=== PATIENT | male | born 1980 | race Caucasian/White ===

== ENCOUNTER 2018-06-13 19:07 | Outpatient (REF) | payer OTHER, SELFPAY ==
[2018-06-13 19:23] LABS: Anion Gap 8.9 mmol/L (3-11); BUN 14 mg/dL (7-18); CO2 27.1 mmol/L (21.0-32.0); CREATININE 0.95 mg/dL (0.70-1.30); Calcium 9.3 mg/dL (8.5-10.1); Chloride 103 mmol/L (98-107); Cholesterol 272 mg/dL (50-200); Glucose 95 mg/dL (70-100); HDL Cholesterol 50 mg/dL (40-60); LDL CHOLESTEROL 201 mg/dL (<100); Potassium 4.4 mmol/L (3.5-5.1); Sodium 139 mmol/L (136-145); Triglyceride 130 mg/dL (30-150)
== END 2018-06-13 19:27 ==
LOC: NCHCN 19:07
PROVIDERS: PCP Specialist/Technologist Athletic Trainer; Visit Provider Specialist/Technologist Athletic Trainer
DX: Z00.00 Encounter for general adult medical examination without abnormal findings (principal); I10 Essential (primary) hypertension
CPT/HCPCS: 80048; 80061; 83721

== ENCOUNTER 2020-05-09 19:55 | Outpatient (REF) | payer OTHER, SELFPAY ==
[2020-05-11 17:58] LABS: Patient Race White; SARS-CoV-2 RNA Undetected (Undetected); SARS-CoV-2 Specimen Source Nasal
== END 2020-05-09 20:15 ==
LOC: NCHCN 19:55
PROVIDERS: PCP Nurse Practitioner Family; Visit Provider Nurse Practitioner Family
DX: R09.81 Nasal congestion (principal)
CPT/HCPCS: U0003

== ENCOUNTER 2020-06-20 08:41 | Outpatient (REF) | payer OTHER, SELFPAY ==
[2020-06-20 15:31] LABS: Anion Gap 6.8 mmol/L (3-11); BUN 14 mg/dL (7-18); CO2 27.2 mmol/L (21.0-32.0); CREATININE 1.03 mg/dL (0.70-1.30); Calculated LDL 99 mg/dL (<100); Chloride 103 mmol/L (98-107); Cholesterol 171 mg/dL (<200); Glucose 90 mg/dL (74-106); HDL Cholesterol 47 mg/dL (40-60); Potassium 4.2 mmol/L (3.5-5.1); Sodium 137 mmol/L (136-145); Triglyceride 127 mg/dL (<150)
== END 2020-06-20 09:01 ==
LOC: NCHCN 08:41
PROVIDERS: PCP Nurse Practitioner Family; Visit Provider Nurse Practitioner Family
DX: E78.5 Hyperlipidemia, unspecified (principal); I10 Essential (primary) hypertension
CPT/HCPCS: 80048; 80061

== ENCOUNTER 2020-09-23 10:33 | Outpatient (REF) | payer OTHER, SELFPAY ==
[2020-09-23 15:46] LABS: Calculated LDL 72 mg/dL (<100); Cholesterol 131 mg/dL (<200); HDL Cholesterol 46 mg/dL (40-60); Triglyceride 66 mg/dL (<150)
== END 2020-09-23 10:34 | disposition home or self-care (01) ==
LOC: NCHCN 10:33
PROVIDERS: PCP Nurse Practitioner Family; Visit Provider Nurse Practitioner Family
DX: E78.5 Hyperlipidemia, unspecified (principal)
CPT/HCPCS: 80061

== ENCOUNTER 2021-04-17 10:15 | Outpatient (REF) | payer OTHER, SELFPAY ==
[2021-04-19 08:37] LABS: COVID-19 RT-PCR UVMMC Result Presumptive Positive (Negative)
== END 2021-04-17 10:16 | disposition home or self-care (01) ==
LOC: NCHCN 10:15
PROVIDERS: PCP Nurse Practitioner Family; Visit Provider Nurse Practitioner Family
DX: Z20.822 Contact with and (suspected) exposure to COVID-19 (principal)
CPT/HCPCS: U0003

== ENCOUNTER 2021-07-14 17:25 | Outpatient (REF) | payer OTHER, SELFPAY ==
[2021-07-14 19:37] LABS: Anion Gap 7.9 mmol/L (3-11); BUN 14 mg/dL (7-18); CO2 29.1 mmol/L (21.0-32.0); Calcium 9.1 mg/dL (8.5-10.1); Calculated LDL 103 mg/dL (<100); Chloride 103 mmol/L (98-107); Cholesterol 178 mg/dL (<200); Glucose 85 mg/dL (74-106); HDL Cholesterol 56 mg/dL (40-60); Sodium 140 mmol/L (136-145); Triglyceride 98 mg/dL (<150)
== END 2021-07-14 17:26 | disposition home or self-care (01) ==
LOC: NCHCN 17:25
PROVIDERS: PCP Nurse Practitioner Family; Visit Provider Nurse Practitioner Family
DX: I10 Essential (primary) hypertension (principal); E78.5 Hyperlipidemia, unspecified
CPT/HCPCS: 80048; 80061

== ENCOUNTER 2022-11-09 18:18 | Outpatient (REF) | payer OTHER, SELFPAY ==
[2022-11-09 19:02] LABS: ALT 39 U/L (16-63); AST 27 U/L (15-37); Albumin 4.3 g/dL (3.4-5.0); Alkaline Phosphatase 54 U/L (46-116); Anion Gap 9.2 mmol/L (3-11); BUN 13 mg/dL (7-18); Bilirubin, Total 0.8 mg/dL (0.2-1.0); CO2 24.8 mmol/L (21.0-32.0); CREATININE 0.9 mg/dL (0.70-1.30); Calcium 9.2 mg/dL (8.5-10.1); Calculated LDL 110 mg/dL (<100); Chloride 103 mmol/L (98-107); Cholesterol 183 mg/dL (<200); Estimated GFR 108.01 (mL/min/1.73m2); Glucose 91 mg/dL (74-106); HDL Cholesterol 55 mg/dL (40-60); Sodium 137 mmol/L (136-145); Total Protein 7.8 g/dL (6.4-8.2); Triglyceride 91 mg/dL (<150)
== END 2022-11-09 18:19 | disposition home or self-care (01) ==
LOC: NCHCN 18:18
PROVIDERS: PCP Nurse Practitioner Family; Visit Provider Nurse Practitioner Family
DX: E78.5 Hyperlipidemia, unspecified (principal); I10 Essential (primary) hypertension; Z13.1 Encounter for screening for diabetes mellitus; Z83.3 Family history of diabetes mellitus; E55.9 Vitamin D deficiency, unspecified
CPT/HCPCS: 80053; 80061; 82306; 83036

== ENCOUNTER 2023-03-25 20:17 | Outpatient (REF) | payer OTHER, SELFPAY ==
[2023-03-25 19:31] LABS: Anion Gap 9.7 mmol/L (3-11); BUN 15 mg/dL (7-18); CO2 24.3 mmol/L (21.0-32.0); CREATININE 0.9 mg/dL (0.70-1.30); Calcium 9.7 mg/dL (8.5-10.1); Chloride 104 mmol/L (98-107); Estimated GFR 107.33 (mL/min/1.73m2); Glucose 83 mg/dL (74-106); Potassium 4.6 mmol/L (3.5-5.1); Sodium 138 mmol/L (136-145)
[2023-03-25 19:55] LABS: Vitamin D 25 Total 28.3 ng/mL (30-100)
== END 2023-03-25 20:18 | disposition home or self-care (01) ==
LOC: NCHCN 20:17
PROVIDERS: PCP Nurse Practitioner Family; Visit Provider Nurse Practitioner Family
DX: E78.5 Hyperlipidemia, unspecified (principal); I10 Essential (primary) hypertension
CPT/HCPCS: 80048; 82306

== ENCOUNTER 2023-09-09 10:30 | Day surgery (SDC) | payer OTHER, SELFPAY ==
--- NOTE | 2023-09-08 18:55 | W.PM.DSUDISC ---
Date of service: 09/09/23 Time of Service: 12:33 Discharge Plan Disposition Patient Disposition: Home Condition: Good Discharge Details Reason For Visit: screening colonoscopy Attending Provider: Christiano Downey Primary Care Provider: Eboni Langford Home Meds and New Rx's Prescriptions: Continued ibuprofen 200 mg tablet 200 mg PO Q6H PRN zinc gluconate 30 mg tablet 30 mg PO DAILY lysine 1,000 mg tablet 1,000 mg PO DAILY atorvastatin 20 mg tablet 10 mg PO DAILY lisinopril 20 mg tablet 20 mg PO DAILY cholecalciferol (vitamin D3) 25 mcg (1,000 unit) capsule 25 mcg PO DAILY sertraline 50 mg tablet 50 mg PO DAILY Patient Comments: take 1 tablet by mouth once daily Discontinued bisacodyl [Dulcolax (bisacodyl)] 5 mg tablet,delayed release (DR/EC) 5 mg PO ONCE Qty: 4 0RF Rx Instructions: Colonoscopy Bowel Prep- Per Instructions polyethylene glycol 3350 17 gram/dose powder 238 g PO ONCE Qty: 238 0RF Rx Instructions: Colonoscopy Bowel Prep- Per Instructions Discharge Instructions Instructions: Diverticulosis (GEN), Diverticulosis Diet (GEN) Additional Instructions: Jean Marie, we were able to complete your colonoscopy today without any difficulty. I did not see any signs of any tumors or polyps. You do have some diverticulosis. Diverticula are little weak spots in the muscular part of the colon wall. This causes little pouches to form. These diverticula can become infected, at which point we called him diverticulitis. That is typically experienced as a fair amount of pain that usually on the left side of the abdomen or down across the middle. Patients are typically quite ill when this happens. Hopefully, he never experienced any of the symptoms. Have attached a little bit of information here regarding broad approaches to diverticular management. Essentially, I think he should try to stay well-hydrated, avoid constipation, and increase the amount of fiber in your diet. Otherwise your colonoscopy was negative. And you will not need another one for about 10 years. 1. If tolerated, consume a soft, low fiber diet for 1-2 days. 2. Do not drive, drink alcohol, operate machinery, make critical decisions, or do activities that require coordination or balance for 24 hours. 3. Because air was put into your colon during the procedure, expelling air from your rectum (passing gas or farting) is normal. 4. You may not have a bowel movement for 1-3 days because of the colonoscopy prep. This is normal. 5. Go directly to the emergency room if you notice any of the following: Develop chills (warm to touch), or if you have a thermometer and your temperature is above 101 Difficulty breathing or difficultly swallowing Persistent vomiting Severe abdominal pain, other than gas cramps Severe chest pain Black, tarry stools Any bleeding ? exceeding one tablespoon 6. Call your physician if the site where your intravenous was started becomes red, swollen, painful, and warm to touch. 7. Your physician has reviewed your pre-procedure medications. Please continue to take those medications as previously ordered. You will be given specific information/education regarding any changes to your medications before leaving. Activity:: Activity as Tolerated Diet:: As Tolerated Discharge Orders Discharge Orders: Discharge Order (Routine); Ordered 09/08/23 Ordered By: Christiano Downey DS: Diagnosis Discharge Diagnosis (1) Encounter for screening colonoscopy: Status: Acute Asessment and Plan: Diverticulosis with otherwise negative screening colonoscopy. Follow-up in 10 years
--- NOTE | 2023-09-08 18:56 | W.COLOREPORT ---
Date of service: 09/09/23 Time of Service: 12:35 Colonoscopy Report Date of procedure: 09/09/23 Pre-op diagnosis general: screening colonoscopy Post-op diagnosis procedure note: other (Diverticulosis) Procedure: colonoscopy Surgeon: Christiano Downey Anesthesia Type: General:No Airway Estimated blood loss (mL): 0 Pathology: none sent Complications: None Disposition: same day Indications: Jean Marie is a 43 year old man who needs a screening colonoscopy Prep: Miralax/Dulcolax Procedure Start Time: 12:04 Procedure End Time: 12:25 Retraction Time: 11 Findings: Sigmoid diverticulosis Procedure Description: After the induction of monitored anesthetic care, and with the patient in left lateral decubitus position, I began by performing an external anorectal exam.? Perineum and skin were normal, as was the anal verge.? There was no evidence of external hemorrhoids.? Next, I performed a digital rectal exam.? I did appreciate any abnormal findings.? Next, I advanced a colonoscope into the rectal vault.? I performed retroflexion.? This appeared normal.? Using insufflation, I then advanced the colonoscope beyond the rectal folds and into the sigmoid colon before advancing towards the cecum.? There was sigmoid diverticulosis.? The scope was noted to be in the cecum by identification of the ileocecal valve and appendiceal orifice.? I then began withdrawing the colonoscope using repeated irrigation as necessary for full evaluation of the colonic mucosa. ?Once the scope was withdrawn to the level of the rectum, great care was taken to examine portions of the rectal folds.? I did not see any signs of tumors, polyps, or any other pathology aside from the diverticular disease mentioned above. Finally, the scope was withdrawn and the patient was brought to the same-day surgery recovery unit as the anesthetic wore off. ?The findings and instructions were shared with the patient prior to discharge. [place] Bowel Prep Stratford Bowel Prep Right Colon: 2 Left Colon: 2 Transverse Colon: 2 Total Score: 6
--- NOTE | 2023-09-09 06:22 | W.ANESPRE ---
General Info Date of Service Date Performed: 09/09/23 Height: 5 ft 8.75 in Weight: 113.398 kg Body Mass Index (BMI): 37.1 Surgical Procedure: Operation Date: 09/09/23 12:20 Proposed Procedure Side Surgeon coco Downey MD Meds Allergies and Home Medications Allergies Allergy/AdvReac Type Severity Reaction Status Date / Time No Known Allergies Allergy Verified 09/09/23 10:35 Home Medication Medication Instructions Recorded ibuprofen 200 mg tablet 200 mg PO Q6H PRN 10/10/20 lysine 1,000 mg tablet 1,000 mg PO DAILY 10/10/20 zinc gluconate 30 mg tablet 30 mg PO DAILY 10/10/20 atorvastatin 20 mg tablet 10 mg PO DAILY 11/21/20 cholecalciferol (vitamin D3) 25 25 mcg PO DAILY 07/29/23 mcg (1,000 unit) capsule lisinopril 20 mg tablet 20 mg PO DAILY 07/29/23 sertraline 50 mg tablet 50 mg PO DAILY 09/06/23 Current Visit Medications: Current Medications Generic Name Dose Route Start Last Admin Trade Name Freq PRN Reason Stop Dose Admin Hyoscyamine Sulfate 0.125 mg 09/08/23 18:58 Hyoscyamine 0.125 Mg Sl/Oral/Chew SL 10/08/23 18:57 DIRECTED PRN Ringer's Solution 1,000 mls @ 80 mls/hr 09/09/23 06:00 IV 09/09/23 23:59 INFUSION ELEAZAR IV Miscellaneous Supplies 1 each 09/09/23 06:00 Iv Access IV 09/09/23 23:59 DIRECTED ELEAZAR Ondansetron HCl 4 mg 09/08/23 18:58 Ondansetron 4 Mg/2 Ml Vial IVP 10/08/23 18:57 Q4H PRN PRN Nausea / Vomiting Sodium Chloride 0 ml 09/09/23 06:00 Normal Saline Flush 10 Ml Syr IV 09/09/23 23:59 PRN PRN Sodium Chloride 0 ml 09/09/23 06:00 Normal Saline 10 Ml Vial IJ 09/09/23 23:59 DIRECTED PRN Sterile Water 0 ml 09/09/23 06:00 Water,Injection,Sterile 10 Ml Vial IJ 09/09/23 23:59 DIRECTED PRN PFSH Active Problems Active Problems: Problem Status Onset Code Encounter for screening colonoscopy Z12.11 Medical History Medical History HLD (hyperlipidemia) HTN (hypertension) Knee joint pain Nasal congestion Tobacco Smoking/Tobacco Use Status: Never Alcohol Alcohol Intake: current Alcohol intake frequency: a few times a week Alcohol type: beer, hard liquor and other Substance Use Substance use: Occasionally Substance use type: marijuana Details: Edibles Vital Signs and Lab Results Vital Signs Most Recent Vital Signs in EMR: Temp Pulse Resp BP Pulse Ox 36.1 C L 82 16 144/88 H 99 09/09/23 10:38 09/09/23 10:38 09/09/23 10:38 09/09/23 10:55 09/09/23 10:38 Lab Results Blood Type / Crossmatch: No Data to Display Complete Blood Count: No Data to Display Complete Metabolic Panel: No Data to Display Liver Function Panel: No Data to Display Coagulation Panel: No Data to Display Cardiac Panel: No Data to Display Arterial Blood Gas: No Data to Display Venous Blood Gas: No Data to Display Pancreas Panel: No Data to Display Thyroid Panel: No Data to Display Infectious Disease: No Data to Display Blood Cultures: No Data to Display Toxicology Panel: No Data to Display Anesthesia Assessment and Plan Anesthesia History Personal History: No History of General Anesthesia Family History: No Family History of Anesthesia Complications Exercise Tolerance Exercise Tolerance: Metabolic Equivalents>4 Cardiac & Pulmonary Exam Cardiac Exam: Normal S1/S2 Heart Sounds Pulmonary Exam: Clear Bilateral Breath Sounds Implantable Cardiac Device Does patient have a Pacemaker or an ICD?: No Airway Exam Known Difficult Airway: No Mallampati Class: 3 Mouth Opening: Normal (> 3cm) Thyromental Distance: Greater than 3 cm Neck Range of Motion: Full ROM Neck Circumference: Thick Teeth Condition: Normal Dentition and Removable Dentures/Plates Upper ASA Classification ASA Score: ASA 2 Emergency Case?: No NPO Status NPO Status: NPO Clears >2 hours, Solids >8 hours Anesthesia Plan Resuscitation Status: Full Code Anesthesia Technique: General Anesthesia Airway Planned: Natural Airway Monitors Used: Standard Monitors Preoperative Comments:: 43 yo male for colo. Sig PMHx: HTN (lisinopril), never, occ EtOH/cannabis.
[2023-09-09 10:38] VITALS: BP 143/108; PULSE 82; RESP 16; TEMP 36.1; O2SAT 99
[2023-09-09] MEDS: Lactated Ringers 1,000 ML 80 ML IV (10:54)
[2023-09-09 10:55] VITALS: BP 144/88
[2023-09-09 11:40] VITALS: BMI 37.1
[2023-09-09 12:31] VITALS: BP 126/84; PULSE 60; RESP 16; TEMP 36.4; O2SAT 99
--- NOTE | 2023-09-09 12:43 | W.ANESPOSTOP ---
Postoperative Evaluation Date, Time and Location Date Performed: 09/09/23 Time Performed: 12:43 Patient Location: Day Surgery Unit Vital Signs Most Recent Imported Vital Signs: Most Recent Vital Signs Temp Pulse Resp BP Pulse Ox 36.4 C L 60 16 126/84 99 09/09/23 12:31 09/09/23 12:31 09/09/23 12:31 09/09/23 12:31 09/09/23 12:31 Pain Score Most Recent Pain Score: Most Recent Pain Score Pain Level 0 09/09/23 12:31 Assessment Mental Status: Awake (Alert & Oriented to Patient Baseline) Airway and Respiratory Function: Patent airway with normal (patient baseline) respiratory exam Cardiovascular Function: Hemodynamically Stable Hydration Status: Adequately Hydrated Nausea & Vomiting: No Nausea or Vomiting Pain: Pt. Denies Any Pain Peripheral Nerve Block: Patient did not receive a nerve block
[2023-09-09 12:58] VITALS: BP 142/93; PULSE 63; RESP 16; TEMP 36.5; O2SAT 98
== END 2023-09-09 13:22 | disposition home or self-care (01) ==
LOC: SUR 10:31
PROVIDERS: PCP Nurse Practitioner Family; Visit Provider Surgery
PROC: 0DJD8ZZ Inspection of Lower Intestinal Tract, Via Natural or Artificial Opening Endoscopic (ICD-10-PCS; CPT 45378; principal; 2023-09-09 12:15)
DX: Z12.11 Encounter for screening for malignant neoplasm of colon (principal); K57.30 Diverticulosis of large intestine without perforation or abscess without bleeding; F10.90 Alcohol use, unspecified, uncomplicated; F12.90 Cannabis use, unspecified, uncomplicated
CPT/HCPCS: 45378; J2704

== ENCOUNTER 2024-01-02 09:15 | Outpatient (REF) | payer OTHER, SELFPAY ==
[2024-01-02 15:43] LABS: Hemoglobin A1C 5.3 % (<5.7)
[2024-01-02 16:26] LABS: ALT 40 U/L (16-63); AST 22 U/L (15-37); Albumin 4.1 g/dL (3.4-5.0); Alkaline Phosphatase 62 U/L (46-116); Anion Gap 9.3 mmol/L (3-11); BUN 14 mg/dL (7-18); Bilirubin, Total 0.53 mg/dL (0.2-1.0); CO2 26.7 mmol/L (21.0-32.0); Calcium 9.4 mg/dL (8.5-10.1); Calculated LDL 109 mg/dL (<100); Chloride 105 mmol/L (98-107); Cholesterol 187 mg/dL (<200); Estimated GFR 94.59 (mL/min/1.73m2); Glucose 100 mg/dL (74-106); HDL Cholesterol 60 mg/dL (40-60); Potassium 4.6 mmol/L (3.5-5.1); Sodium 141 mmol/L (136-145); TSH (W/Ref FT4) 1.51 uIU/mL (0.36-3.74); Total Protein 7.8 g/dL (6.4-8.2); Triglyceride 90 mg/dL (<150); Vitamin D 25 Total 32.7 ng/mL (30-100)
[2024-01-02 23:35] LABS: Hepatitis C Ab w Rflx HCV PCR Negative (Negative)
[2024-01-03] LABS: HIV-1/2 Ag & Ab Screen Negative (Negative)
== END 2024-01-02 09:16 | disposition home or self-care (01) ==
LOC: NCHCN 09:15
PROVIDERS: PCP Nurse Practitioner Family; Visit Provider Nurse Practitioner Family
DX: Z00.00 Encounter for general adult medical examination without abnormal findings (principal); E78.5 Hyperlipidemia, unspecified; E55.9 Vitamin D deficiency, unspecified; F41.8 Other specified anxiety disorders; Z13.1 Encounter for screening for diabetes mellitus; Z11.4 Encounter for screening for human immunodeficiency virus [HIV]; Z11.59 Encounter for screening for other viral diseases
CPT/HCPCS: 80053; 80061; 82306; 86803; 87389; 83036; 84443

== ENCOUNTER 2024-12-30 13:58 | Outpatient (REF) | payer OTHER, SELFPAY ==
[2024-12-30 16:44] LABS: ALT 47 U/L (16-63); AST 27 U/L (15-37); Albumin 3.9 g/dL (3.4-5.0); Alkaline Phosphatase 63 U/L (46-116); Anion Gap 9.4 mmol/L (3-11); BUN 11 mg/dL (7-18); Bilirubin, Total 0.4 mg/dL (0.2-1.0); CO2 26.6 mmol/L (21.0-32.0); Calcium 9.2 mg/dL (8.5-10.1); Chloride 103 mmol/L (98-107); Estimated GFR 106.67 (mL/min/1.73m2); Glucose 97 mg/dL (74-106); Potassium 4.4 mmol/L (3.5-5.1); Sodium 139 mmol/L (136-145); Total Protein 7.5 g/dL (6.4-8.2)
== END 2024-12-30 13:59 | disposition home or self-care (01) ==
LOC: NCHCN 13:58
PROVIDERS: PCP Nurse Practitioner Family; Visit Provider Nurse Practitioner Family
DX: E78.5 Hyperlipidemia, unspecified (principal)
CPT/HCPCS: 80053